=== PATIENT | female | born 1940 | race Two or more races ===

== ENCOUNTER 2025-01-05 22:11 | Emergency (ER) | payer OTHER ==
[~2025-01-05] VITALS: Ht 157.5 cm; Wt 66.7 kg
[2025-01-05 22:31] VITALS: BP 116/65; O2SAT 97
[2025-01-05] MEDS ORDERED: GLIPIZIDE XL2.5 MG (22:31)
[2025-01-05] MEDS ORDERED: HYDROCHLOROTH12.5 M2 (22:31)
[2025-01-05] MEDS ORDERED: LOTREL 10-20 M1 EACH (22:31)
[2025-01-05] MEDS ORDERED: CHILDREN'S ASPI81 MG (22:31)
[2025-01-05] MEDS ORDERED: JANUMET 50-1,01 EACH (22:31)
== END 2025-01-06 | disposition left against medical advice (07) ==
LOC: ER 22:12
DX: Z53.21 Procedure and treatment not carried out due to patient leaving prior to being seen by health care provider (principal)